=== PATIENT | female | born 1995 | race Caucasian/White ===

== ENCOUNTER → 2016-05-22 | Outpatient (CLI) | payer MEDICAID ==
[~2016-05-22] MED LIST: ACET-654 PO; CIPR500T89 PO; DOCU10CA PO; FLEXERIL PO; FLOM5CAP PO; IBUP80TA PO; PERCOCET PO
== END ==
LOC: M OUTALCOH 08:40
PROVIDERS: ATTEND Psychiatry & Neurology Psychiatry
DX: Z13.9 Encounter for screening, unspecified (principal); F11.20 Opioid dependence, uncomplicated; F12.20 Cannabis dependence, uncomplicated; F13.20 Sedative, hypnotic or anxiolytic dependence, uncomplicated

== ENCOUNTER 2016-05-27 17:32 | Emergency (ER) | payer MEDICAID ==
[2016-05-27 19:52] LABS: BASO % 0.3 % (0.0-1.0); EOS # 0.1 K/mm3 (0.0-0.50); EOS % 1.3 % (0.0-3.0); LARGE UNSTAINED CELL # 0.3 K/mm3 (0.0-0.4); LARGE UNSTAINED CELL % 4.7 % (0.0-4.0); LYMPH # 2.1 K/mm3 (1.5-6.5); LYMPH % 37.8 % (24.0-44.0); MEAN CORPUSCULAR HEMOGLOBIN 30.5 pg (27.0-33.0); MEAN CORPUSCULAR HGB CONC 33.4 g/dl (32.0-36.5); MEAN CORPUSCULAR VOLUME 91.2 fl (80.0-96.0); MONO # 0.3 K/mm3 (0.0-0.8); MONO % 4.7 % (0.0-5.0); NEUTROPHILS # 2.8 K/mm3 (1.8-7.7); NEUTROPHILS % 51.2 % (36.0-66.0); PLATELET COUNT, AUTOMATED 367 k/mm3 (150-450); RED CELL DISTRIBUTION WIDTH 12.3 % (11.5-14.5); WHITE BLOOD COUNT 5.5 K/mm3 (4.0-10.0)
[2016-05-27 20:02] LABS: ANION GAP 8 MEQ/L (8-16); BLOOD UREA NITROGEN 8 MG/DL (7-18); CALCIUM LEVEL 8.6 MG/DL (8.5-10.1); CARBON DIOXIDE LEVEL 30 MEQ/L (21-32); CHLORIDE LEVEL 101 MEQ/L (98-107); CREATININE FOR GFR 0.71 MG/DL (0.55-1.02); GLOMERULAR FILTRATION RATE > 60.0 (>60); GLUCOSE, FASTING 82 MG/DL (70-105); HCG, SERUM QUANTITATIVE < 1.0 MIU/ML; POTASSIUM SERUM 3.1 MEQ/L (3.5-5.1); SODIUM LEVEL 139 MEQ/L (136-145)
--- NOTE | 2016-05-27 21:00 | REPUSA ---
CLINICAL STATEMENT: Vaginal bleeding TECHNIQUE: A sonogram of the pelvis was performed utilizing transabdominal and transvaginal approache s assessing cool-scale appearance and color Doppler flow. COMPARISON: None FINDINGS: Uterus: Anteverted Dextroverted Size: 7.7 x 4.7 x 6.1 cm Appearance: Absence of myomas. Endometrium: 11 mm in thickness (normal up to 3mm in postmenopausal women) No mass or increased vascu larity. Cervix: Normal Right ovary: Present Size: 2.8 x 2.5 x 2 x 3 cm Appearance: Normal Flow: Normal. Left ovary: Present Size: 2.7 x 1.7 x 2.2 cm Appearance: Normal Flow: Normal No free pelvic fluid. IMPRESSION: No sonographic abnormality identified. Thank you for this kind referral of this patient.
--- NOTE | 2016-05-27 21:27 | EDDOCDS ---
Nurse's Notes [facility] Name: Yessica Perez Age: 21 yrs Sex: Female : 1995 Arrival Date: 05/27/2016 Time: 17:32 Bed 7 Private MD: Nikolas Garcia Diagnosis: Abnormal uterine and vaginal bleeding, unspecified;Abdominal and pelvic pain Presentation: 05/27 17:37 Presenting complaint: Patient states: woke up this afternoon from nap covered in blood hs1 from vagina and now in cramping pain that is now constant. Patient also reports nausea na throwing up. Risk factors: The patient reports no loss of conciousness prior to arrival. This patient has not had a hysterectomy. This patient has not begun menopause. Adult Sepsis Screening: The patient does not have new or worsening altered mentation. Patient's respiratory rate is less than 22. Systolic blood pressure is greater than 100. Patient has a qSOFA score of 0- Negative Sepsis Screen. Suicide/Homicide risk assessment- the patient denies having any suicidal and/or homicidal ideations and does not present with any other emotional, behavioral or mental health complaints. 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 Transition of care: patient was not received from another setting of care. 17:37 Acuity: KODAK Level 3 hs1 17:37 Method Of Arrival: Walkin/Carried/Asstd hs1 Triage Assessment: 17:39 General: Appears in no apparent distress, Behavior is cooperative. Pain: Location: hs1 pelvis Pain currently is 10 out of 10 on a pain scale. HIV screening NA for this visit Offered previously. : Reports vaginal bleeding that is heavy flow. DRIVER: 17:40 LMP 03/20/2016, patient states took 2 home tests and they were positive hs1 Historical: - Allergies: no known allergies; - Home Meds: 1. none - PMHx: Substance Abuse; - PSHx: Kidney Stent- Left; Appendectomy; Tonsillectomy; - Social history: Smoking status: Patient uses tobacco products, heavy tobacco smoker. No barriers to communication noted, The patient speaks fluent [place] Of [place], Speaks appropriately for age. - Family history: Not pertinent. - : The pt / caregiver states he / she is not on anticoagulants. Home medication list is obtained from the patient. - Exposure Risk Screening:: None identified. Screenin:28 Screening information is obtained from the patient. Fall risk: No risks identified. cj Assistance ADL's: requires no assistance with activities of daily living. Assistance ADL's: requires no assistance with activities of daily living. Abuse/DV Screen: The patient / caregiver reports he/she is: not in a situation that causes fear, pain or injury. Nutritional screening: No deficits noted. Advance Directives: There is no active DNR order. home support is adequate. Assessment: 18:53 General: pt able to ambulate with steady gait. Reports some dizziness. . Pain: ttb Location: lower abd/pelvis. Neurological: Level of Consciousness is awake, alert. 19:28 General: Appears in no apparent distress, comfortable, Behavior is appropriate for age, cjh cooperative, reports continued bleeding, additional pads provided. Pain: Location: pelvis. Respiratory: Airway is patent Respiratory effort is even, unlabored, Respiratory pattern is regular, symmetrical. Derm: Skin is pink, warm & dry. 20:30 General: cooperative with pelvic exam and ultrasound, awaiting results and dispo. [facility] 21:22 General: Appears in no apparent distress, comfortable, Behavior is crying, patient [facility] crying states "I guess I can't just get , or stay ", declines offer to assist with PFS or clergy, states she has family support and support from rehab counselor. Reviewed discharge instructions, encouraged and answered questions, denies further needs. Vital Signs: 17:33 BP 132 / 59; Pulse 67; Resp 18 S; Temp 96.6(O); Pulse Ox 100% on R/A; Weight 52.16 kg gr2 (R); Height 5 ft. 2 in. (157.48 cm) (R); Pain 8/10; 18:41 BP 151 / 83; Pulse 76; Resp 16; Pulse Ox 100% on R/A; Pain 10/10; ttb 21:22 BP 115 / 80; Pulse 88; Resp 16; Temp 98.6; Pulse Ox 99% ; Pain 6/10; cjh 17:33 Body Mass Index 21.03 (52.16 kg, 157.48 cm) gr2 Vitals: 17:33 Log In Time: May 27, 2016 at 17:33. gr2 ED Course: 17:33 Patient visited by Zhanna Cruz. gr2 17:33 Jepma,Nikolas,DO is Private Physician. gr2 17:33 Patient moved to Waiting gr2 17:35 Patient visited by Zhanna Cruz. gr2 17:35 Patient moved to Pre RCE gr2 17:38 Triage Initiated hs1 18:49 Patient moved to 7 mlb1 18:53 Patient visited by Cony Retana, RN. ttb 18:54 Patient visited by Cony Retana, CAMMY. ttb 19:28 The patient / caregiver is instructed regarding the plan of care and ED course. [facility] 19:28 Inserted saline lock: 20 gauge in right antecubital area and blood collected. The [facility] patient tolerated the procedure well. Labs drawn. (by ED staff). Urine collected. Clean catch specimen. 19:33 Luz Girard MD is Attending Physician. ml 19:33 Patient visited by Luz Girard MD. ml 19:47 Wet Prep Sent. cln 19:47 GC & Chlamydia Amplification Sent. cln 20:15 Patient moved to Ultrasound br3 20:15 Assist provider with pelvic exam: Set up pelvic tray. Performed by Luz dacosta MD Patient tolerated well. 20:41 Patient moved to 7 br3 21:00 Nikolas Garcia DO is Referral Physician. ml 21:15 US PELVIC NON-OB COMPLETE Returned. EDMS 21:22 Discontinued lock intact, bleeding controlled, pressure dressing applied, No h redness/swelling at site. Order Results: Lab Order: CBC with Diff; SPEC'M 05/27/16 19:22 Test: WHITE BLOOD COUNT; Value: 5.5; Range: 4.0-10.0; Units: K/mm3; Status: F Test: RED BLOOD COUNT; Value: 4.52; Range: 4.00-5.40; Units: M/mm3; Status: F Test: HEMOGLOBIN; Value: 13.8; Range: 12.0-16.0; Units: g/dl; Status: F Test: HEMATOCRIT; Value: 41.2; Range: 36.0-47.0; Units: %; Status: F Test: MEAN CORPUSCULAR VOLUME; Value: 91.2; Range: 80.0-96.0; Units: fl; Status: F Test: MEAN CORPUSCULAR HEMOGLOBIN; Value: 30.5; Range: 27.0-33.0; Units: pg; Status: F Test: MEAN CORPUSCULAR HGB CONC; Value: 33.4; Range: 32.0-36.5; Units: g/dl; Status: F Test: RED CELL DISTRIBUTION WIDTH; Value: 12.3; Range: 11.5-14.5; Units: %; Status: F Test: PLATELET COUNT, AUTOMATED; Value: 367; Range: 150-450; Units: k/mm3; Status: F Test: NEUTROPHILS %; Value: 51.2; Range: 36.0-66.0; Units: %; Status: F Test: LYMPH %; Value: 37.8; Range: 24.0-44.0; Units: %; Status: F Test: MONO %; Value: 4.7; Range: 0.0-5.0; Units: %; Status: F Test: EOS %; Value: 1.3; Range: 0.0-3.0; Units: %; Status: F Test: BASO %; Value: 0.3; Range: 0.0-1.0; Units: %; Status: F Test: LARGE UNSTAINED CELL %; Value: 4.7; Range: 0.0-4.0; Abnormal: Above high normal; Units: %; Status: F Test: NEUTROPHILS #; Value: 2.8; Range: 1.8-7.7; Units: K/mm3; Status: F Test: LYMPH #; Value: 2.1; Range: 1.5-6.5; Units: K/mm3; Status: F Test: MONO #; Value: 0.3; Range: 0.0-0.8; Units: K/mm3; Status: F Test: EOS #; Value: 0.1; Range: 0.0-0.50; Units: K/mm3; Status: F Test: BASO #; Value: 0.0; Range: 0.0-0.2; Units: K/mm3; Status: F Test: LARGE UNSTAINED CELL #; Value: 0.3; Range: 0.0-0.4; Units: K/mm3; Status: F Lab Order: MED Profile; SPEC'M 05/27/16 19:22 Test: GLUCOSE, FASTING; Value: 82; Range: 70-105; Units: MG/DL; Status: F Test: BLOOD UREA NITROGEN; Value: 8; Range: 7-18; Units: MG/DL; Status: F Test: CREATININE FOR GFR; Value: 0.71; Range: 0.55-1.02; Units: MG/DL; Status: F Test: GLOMERULAR FILTRATION RATE; Value: > 60.0; Range: >60; Status: F Test: SODIUM LEVEL; Value: 139; Range: 136-145; Units: MEQ/L; Status: F Test: POTASSIUM SERUM; Value: 3.1; Range: 3.5-5.1; Abnormal: Below low normal; Units: MEQ/L; Status: F Test: CHLORIDE LEVEL; Value: 101; Range: 98-107; Units: MEQ/L; Status: F Test: CARBON DIOXIDE LEVEL; Value: 30; Range: 21-32; Units: MEQ/L; Status: F Test: ANION GAP; Value: 8; Range: 8-16; Units: MEQ/L; Status: F Test: CALCIUM LEVEL; Value: 8.6; Range: 8.5-10.1; Units: MG/DL; Status: F Test Note: ; Units are mL/min/1.73 m2 Chronic Kidney Disease Staging per NKF: Stage I & II GFR >=60 Normal to Mildly Decreased Stage III GFR 30-59 Moderately Decreased Stage IV GFR 15-29 Severely Decreased Stage V GFR <15 Very Little GFR Left ESRD GFR <15 on BL[facility] Lab Order: Hcg, Serum Quantitative; SPEC'M 05/27/16 19:22 Test: HCG, SERUM QUANTITATIVE; Value: < 1.0; Units: MIU/ML; Status: F Test Note: ; GESTATIONAL AGE APPROXIMATE HCG RANGE (MIU/ML) 0.2-1 WEEK 5-50 1-2 WEEKS 50-500 2-3 WEEKS 100-5,000 3-4 WEEKS 500-10,000 4-5 WEEKS 1,000-50,000 5-6 WEEKS 10,000-100,000 6-8 WEEKS 15,000-200,000 2-3 MONTHS 10,000-100,000 NON FEMALES LESS THAN 3.0 Patient samples may contain human heterophilic antibodies that could react with immunoassays to give falsely elevated or depressed results. This assay has been designed to minimize interference from heterophilic antibodies. Elevated hCG levels have also been associated with trophoblastic disease and nontrophoblastic neoplasms. The possibility of having these diseases should be considered before a diagnosis of is made. This test is not intended for use as a surrogate marker for aiding in the diagnosis or monitoring the treatment of cancer patients. [employer] [place] methodology. Lab Order: Type & Screen; SPEC'M 05/27/16 19:22 Test: BLOOD TYPE; Value: O POS; Status: F Test: AB SCREEN (INDIRECT ADRIAN)VIS; Value: NEGATIVE; Status: F Lab Order: Wet Prep; SPEC'M 05/27/16 19:46 Test: WET PREP; Value: WET PREP RESULT; Status: F Test: WET PREP; Value: MANY RBC; Status: F Test: WET PREP; Value: MODERATE EPITHELIAL CELLS PRESENT; Status: F Test: WET PREP; Value: MODERATE WBC; Status: F Test: WET PREP; Value: MODERATE SHORT RODS PRESENT; Status: F Test: WET PREP; Value: FEW LONG RODS PRESENT; Status: F Radiology Order: US PELVIC NON-OB COMPLETE Test: US PELVIC NON-OB COMPLETE REASON FOR EXAMINATION: vag bleeding home + hcg; ; CLINICAL STATEMENT: Vaginal bleeding; TECHNIQUE: A sonogram of the pelvis was performed utilizing transabdominal and transvaginal approache; s assessing cool-scale appearance and color Doppler flow.; COMPARISON: None; FINDINGS:; Uterus: Anteverted Dextroverted; Size: 7.7 x 4.7 x 6.1 cm; Appearance: Absence of myomas.; Endometrium: 11 mm in thickness (normal up to 3mm in postmenopausal women) No mass or increased vascu; larity.; Cervix: Normal; Right ovary: Present; Size: 2.8 x 2.5 x 2 x 3 cm; Appearance: Normal; Flow: Normal.; Left ovary: Present; Size: 2.7 x 1.7 x 2.2 cm; Appearance: Normal; Flow: Normal; No free pelvic fluid.; IMPRESSION:; No sonographic abnormality identified.; Thank you for this kind referral of this patient.; ; Outcome: 20:15 Discharge Assessment: Patient awake, alert and oriented x 3. No cognitive and/or [facility] functional deficits noted. Patient verbalized understanding of disposition instructions. patient administered narcotics - no. The following High Risk Discharge criteria are identified: None. Discharged to home ambulatory. Condition: stable. Discharge instructions given to patient, Instructed on discharge instructions, follow up and referral plans. Demonstrated understanding of instructions, Pt was receptive of discharge instructions/ teaching. Ultrasound Study completed. Property :Personal belongings accompany Pt. 21:01 Discharge ordered by Provider. ml 21:25 Patient left the ED. [facility] Signatures: Dispatcher [employer] EDMS Luz Girard MD MD ml Barney, Michael B RN RN mlb1 Zunilda Cruz br3 Ramandeep Silva RN RN hs1 Franchesca MezaRN RN [facility] Cony Retana RN RN ttb Zhanna Cruz gr2 Claire Montejo PCA INDIAN TRADER cln [id number]
--- NOTE | 2016-05-27 21:27 | EDDOCDS ---
Physician Documentation [facility] Name: Yessica Perez Age: 21 yrs Sex: Female : 1995 Arrival Date: 05/27/2016 Time: 17:32 Bed 7 Private MD: Nikolas Garcia Disposition: 05/27/16 21:01 Discharged to Home/Self Care. Impression: Abnormal uterine and vaginal bleeding, unspecified, Abdominal and pelvic pain. - Condition is Stable. - Discharge Instructions: Abdominal Pain, Adult, Abnormal Uterine Bleeding. - Medication Reconciliation, Local Pharmacy Hours form. - Follow up: Nikolas Garcia DO; When: Call to arrange an appointment. - Problem is new. - Symptoms are unchanged. - Notes: follow [facility] with [facility]. Return if worsening symptpoms Historical: - Allergies: no known allergies; - Home Meds: 1. none - PMHx: Substance Abuse; - PSHx: Kidney Stent- Left; Appendectomy; Tonsillectomy; - Social history: Smoking status: Patient uses tobacco products, heavy tobacco smoker. No barriers to communication noted, The patient speaks fluent [place], Speaks appropriately for age. - Family history: Not pertinent. - : The pt / caregiver states he / she is not on anticoagulants. Home medication list is obtained from the patient. - Exposure Risk Screening:: None identified. 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 2 in. (157.48 cm) (R); Pain 8/10; 18:41 BP 151 / 83; Pulse 76; Resp 16; Pulse Ox 100% on R/A; Pain 10/10; ttb 21:22 BP 115 / 80; Pulse 88; Resp 16; Temp 98.6; Pulse Ox 99% ; Pain 6/10; cjh 17:33 Body Mass Index 21.03 (52.16 kg, 157.48 cm) gr2 MDM: 19:41 IV Saline Lock ordered. ml 19:41 Set up pelvic ordered. ml 19:41 CBC with Diff Ordered. EDMS 19:41 MED Profile Ordered. EDMS 19:41 Hcg, Serum Quantitative Ordered. EDMS 19:41 GC & Chlamydia Amplification Ordered. EDMS 19:41 Wet Prep Ordered. EDMS 19:42 Type & Screen Ordered. EDMS 20:31 CBC with Diff Reviewed. ml 20:31 MED Profile Reviewed. ml 20:31 Hcg, Serum Quantitative Reviewed. ml 20:31 Wet Prep Reviewed. ml 20:37 US PELVIC NON-OB COMPLETE Ordered. EDMS 20:37 Transvaginal NON- US Ordered. EDMS 20:38 DUPLEX SCAN LIMITED (DOPPLER) Ordered. EDMS Signatures: Dispatcher [employer] EDMS Luz Girard MD MD Ramandeep Silva RN RN [facility] Franchesca Meza RN RN [facility] The chart was reviewed and I authenticate all verbal orders and agree with the evaluation and treatment provided.Corrections: (The following items were deleted from the chart) 20:37 19:42 1ST TRIMESTER US+US ordered. EDMS EDMS MTDD
--- NOTE | 2016-05-29 22:27 | EDDOCDS ---
Physician Documentation [facility] Name: Yessica Perez Age: 21 yrs Sex: Female : 1995 Arrival Date: 05/27/2016 Time: 17:32 Bed 7 Private MD: Nikolas Garcia Disposition: 05/27/16 21:01 Discharged to Home/Self Care. Impression: Abnormal uterine and vaginal bleeding, unspecified, Abdominal and pelvic pain. - Condition is Stable. - Discharge Instructions: Abdominal Pain, Adult, Abnormal Uterine Bleeding. - Medication Reconciliation, Local Pharmacy Hours form. - Follow up: Nikolas Garcia DO; When: Call to arrange an appointment. - Problem is new. - Symptoms are unchanged. - Notes: [facility] with [facility]. Return if worsening symptpoms Historical: - Allergies: no known allergies; - Home Meds: 1. none - PMHx: Substance Abuse; - PSHx: Kidney Stent- Left; Appendectomy; Tonsillectomy; - Social history: Smoking status: Patient uses tobacco products, heavy tobacco smoker. No barriers to communication noted, The patient speaks fluent [place], Speaks appropriately for age. - Family history: Not pertinent. - : The pt / caregiver states he / she is not on anticoagulants. Home medication list is obtained from the patient. - Exposure Risk Screening:: None identified. 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 2 in. (157.48 cm) (R); Pain 8/10; 18:41 BP 151 / 83; Pulse 76; Resp 16; Pulse Ox 100% on R/A; Pain 10/10; ttb 21:22 BP 115 / 80; Pulse 88; Resp 16; Temp 98.6; Pulse Ox 99% ; Pain 6/10; cjh 17:33 Body Mass Index 21.03 (52.16 kg, 157.48 cm) gr2 MDM: 19:41 IV Saline Lock ordered. ml 19:41 Set up pelvic ordered. ml 19:41 CBC with Diff Ordered. EDMS 19:41 MED Profile Ordered. EDMS 19:41 Hcg, Serum Quantitative Ordered. EDMS 19:41 GC & Chlamydia Amplification Ordered. EDMS 19:41 Wet Prep Ordered. EDMS 19:42 Type & Screen Ordered. EDMS 20:31 CBC with Diff Reviewed. ml 20:31 MED Profile Reviewed. ml 20:31 Hcg, Serum Quantitative Reviewed. ml 20:31 Wet Prep Reviewed. ml 20:37 US PELVIC NON-OB COMPLETE Ordered. EDMS 20:37 Transvaginal NON- US Ordered. EDMS 20:38 DUPLEX SCAN LIMITED (DOPPLER) Ordered. EDMS 05/28 13:26 T-Sheet-- Draft Copy was scanned into [employer] and attached to record. gb Signatures: Dispatcher [employer] [facility] Julio-Luz Dacosta MD MD Olga Prasad, Reg Reg Ramandeep Silva RN RN hs1 Franchesca MezaRN RN cj The chart was reviewed and I authenticate all verbal orders and agree with the evaluation and treatment provided.Corrections: (The following items were deleted from the chart) 05/27 20:37 19:42 1ST TRIMESTER US+US ordered. EDMS EDMS Attachments: 05/28 13:26 T-Sheet-- Draft Copy gb Chart Complete MTDD
--- NOTE | 2016-05-29 22:27 | EDDOCDS ---
Nurse's Notes [facility] Name: Yessica Perez Age: 21 yrs Sex: Female : 1995 Arrival Date: 05/27/2016 Time: 17:32 Bed 7 Private MD: Nikolas Garcia Diagnosis: Abnormal uterine and vaginal bleeding, unspecified;Abdominal and pelvic pain Presentation: 05/27 17:37 Presenting complaint: Patient states: woke up this afternoon from nap covered in blood hs1 from vagina and now in cramping pain that is now constant. Patient also reports nausea na throwing up. Risk factors: The patient reports no loss of conciousness prior to arrival. This patient has not had a hysterectomy. This patient has not begun menopause. Adult Sepsis Screening: The patient does not have new or worsening altered mentation. Patient's respiratory rate is less than 22. Systolic blood pressure is greater than 100. Patient has a qSOFA score of 0- Negative Sepsis Screen. Suicide/Homicide risk assessment- the patient denies having any suicidal and/or homicidal ideations and does not present with any other emotional, behavioral or mental health complaints. Status: Patient is not a medical service technician or dependent. Transition of care: patient was not received from another setting of care. 17:37 Acuity: KODAK Level 3 hs1 17:37 Method Of Arrival: Walkin/Carried/Asstd hs1 Triage Assessment: 17:39 General: Appears in no apparent distress, Behavior is cooperative. Pain: Location: hs1 pelvis Pain currently is 10 out of 10 on a pain scale. HIV screening NA for this visit Offered previously. : Reports vaginal bleeding that is heavy flow. 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 none - PMHx: Substance Abuse; - PSHx: Kidney Stent- Left; Appendectomy; Tonsillectomy; - Social history: Smoking status: Patient uses tobacco products, heavy tobacco smoker. No barriers to communication noted, The patient speaks fluent [place], Speaks appropriately for age. - Family history: Not pertinent. - : The pt / caregiver states he / she is not on anticoagulants. Home medication list is obtained from the patient. - Exposure Risk Screening:: None identified. Screenin:28 Screening information is obtained from the patient. Fall risk: No risks identified. cj Assistance ADL's: requires no assistance with activities of daily living. Assistance ADL's: requires no assistance with activities of daily living. Abuse/DV Screen: The patient / caregiver reports he/she is: not in a situation that causes fear, pain or injury. Nutritional screening: No deficits noted. Advance Directives: There is no active DNR order. home support is adequate. Assessment: 18:53 General: pt able to ambulate with steady gait. Reports some dizziness. . Pain: ttb Location: lower abd/pelvis. Neurological: Level of Consciousness is awake, alert. 19:28 General: Appears in no apparent distress, comfortable, Behavior is appropriate for age, cjh cooperative, reports continued bleeding, additional pads provided. Pain: Location: pelvis. Respiratory: Airway is patent Respiratory effort is even, unlabored, Respiratory pattern is regular, symmetrical. Derm: Skin is pink, warm & dry. 20:30 General: cooperative with pelvic exam and ultrasound, awaiting results and dispo. [facility] 21:22 General: Appears in no apparent distress, comfortable, Behavior is crying, patient [facility] crying states "I guess I can't just get , or stay ", declines offer to assist with PFS or clergy, states she has family support and support from rehab counselor. Reviewed discharge instructions, encouraged and answered questions, denies further needs. Vital Signs: 17:33 BP 132 / 59; Pulse 67; Resp 18 S; Temp 96.6(O); Pulse Ox 100% on R/A; Weight 52.16 kg gr2 (R); Height 5 ft. 2 in. (157.48 cm) (R); Pain 8/10; 18:41 BP 151 / 83; Pulse 76; Resp 16; Pulse Ox 100% on R/A; Pain 10/10; ttb 21:22 BP 115 / 80; Pulse 88; Resp 16; Temp 98.6; Pulse Ox 99% ; Pain 6/10; cjh 17:33 Body Mass Index 21.03 (52.16 kg, 157.48 cm) gr2 Vitals: 17:33 Log In Time: May 27, 2016 at 17:33. gr2 ED Course: 17:33 Patient visited by Zhanna Cruz. gr2 17:33 Jepma,Nikolas,DO is Private Physician. gr2 17:33 Patient moved to Waiting gr2 17:35 Patient visited by Zhanna Cruz. gr2 17:35 Patient moved to Pre RCE gr2 17:38 Triage Initiated hs1 18:49 Patient moved to 7 mlb1 18:53 Patient visited by Cony Retana, RN. ttb 18:54 Patient visited by Cony Retana, RN. ttb 19:28 The patient / caregiver is instructed regarding the plan of care and ED course. [facility] 19:28 Inserted saline lock: 20 gauge in right antecubital area and blood collected. The [facility] patient tolerated the procedure well. Labs drawn. (by ED staff). Urine collected. Clean catch specimen. 19:33 Luz Girard MD is Attending Physician. ml 19:33 Patient visited by Luz Girard MD. ml 19:47 Wet Prep Sent. cln 19:47 GC & Chlamydia Amplification Sent. cln 20:15 Patient moved to Ultrasound br3 20:15 Assist provider with pelvic exam: Set up pelvic tray. Performed by Luz dacosta MD Patient tolerated well. 20:41 Patient moved to 7 br3 21:00 Nikolas Garcia DO is Referral Physician. ml 21:15 US PELVIC NON-OB COMPLETE Returned. EDMS 21:22 Discontinued lock intact, bleeding controlled, pressure dressing applied, No [facility] redness/swelling at site. 05/28 13:26 T-Sheet-- Draft Copy was scanned into [employer] and attached to record. gb Order Results: Lab Order: CBC with Diff; SPEC'M 05/27/16 19:22 Test: WHITE BLOOD COUNT; Value: 5.5; Range: 4.0-10.0; Units: K/mm3; Status: F Test: RED BLOOD COUNT; Value: 4.52; Range: 4.00-5.40; Units: M/mm3; Status: F Test: HEMOGLOBIN; Value: 13.8; Range: 12.0-16.0; Units: g/dl; Status: F Test: HEMATOCRIT; Value: 41.2; Range: 36.0-47.0; Units: %; Status: F Test: MEAN CORPUSCULAR VOLUME; Value: 91.2; Range: 80.0-96.0; Units: fl; Status: F Test: MEAN CORPUSCULAR HEMOGLOBIN; Value: 30.5; Range: 27.0-33.0; Units: pg; Status: F Test: MEAN CORPUSCULAR HGB CONC; Value: 33.4; Range: 32.0-36.5; Units: g/dl; Status: F Test: RED CELL DISTRIBUTION WIDTH; Value: 12.3; Range: 11.5-14.5; Units: %; Status: F Test: PLATELET COUNT, AUTOMATED; Value: 367; Range: 150-450; Units: k/mm3; Status: F Test: NEUTROPHILS %; Value: 51.2; Range: 36.0-66.0; Units: %; Status: F Test: LYMPH %; Value: 37.8; Range: 24.0-44.0; Units: %; Status: F Test: MONO %; Value: 4.7; Range: 0.0-5.0; Units: %; Status: F Test: EOS %; Value: 1.3; Range: 0.0-3.0; Units: %; Status: F Test: BASO %; Value: 0.3; Range: 0.0-1.0; Units: %; Status: F Test: LARGE UNSTAINED CELL %; Value: 4.7; Range: 0.0-4.0; Abnormal: Above high normal; Units: %; Status: F Test: NEUTROPHILS #; Value: 2.8; Range: 1.8-7.7; Units: K/mm3; Status: F Test: LYMPH #; Value: 2.1; Range: 1.5-6.5; Units: K/mm3; Status: F Test: MONO #; Value: 0.3; Range: 0.0-0.8; Units: K/mm3; Status: F Test: EOS #; Value: 0.1; Range: 0.0-0.50; Units: K/mm3; Status: F Test: BASO #; Value: 0.0; Range: 0.0-0.2; Units: K/mm3; Status: F Test: LARGE UNSTAINED CELL #; Value: 0.3; Range: 0.0-0.4; Units: K/mm3; Status: F Lab Order: MED Profile; [facility]' 05/27/16 19:22 Test: GLUCOSE, FASTING; Value: 82; Range: 70-105; Units: MG/DL; Status: F Test: BLOOD UREA NITROGEN; Value: 8; Range: 7-18; Units: MG/DL; Status: F Test: CREATININE FOR GFR; Value: 0.71; Range: 0.55-1.02; Units: MG/DL; Status: F Test: GLOMERULAR FILTRATION RATE; Value: > 60.0; Range: >60; Status: F Test: SODIUM LEVEL; Value: 139; Range: 136-145; Units: MEQ/L; Status: F Test: POTASSIUM SERUM; Value: 3.1; Range: 3.5-5.1; Abnormal: Below low normal; Units: MEQ/L; Status: F Test: CHLORIDE LEVEL; Value: 101; Range: 98-107; Units: MEQ/L; Status: F Test: CARBON DIOXIDE LEVEL; Value: 30; Range: 21-32; Units: MEQ/L; Status: F Test: ANION GAP; Value: 8; Range: 8-16; Units: MEQ/L; Status: F Test: CALCIUM LEVEL; Value: 8.6; Range: 8.5-10.1; Units: MG/DL; Status: F Test Note: ; Units are mL/min/1.73 m2 Chronic Kidney Disease Staging per NKF: Stage I & II GFR >=60 Normal to Mildly Decreased Stage III GFR 30-59 Moderately Decreased Stage IV GFR 15-29 Severely Decreased Stage V GFR <15 Very Little GFR Left ESRD GFR <15 on FITNESS DIRECTOR Lab Order: Hcg, Serum Quantitative; [facility]' 05/27/16 19:22 Test: HCG, SERUM QUANTITATIVE; Value: < 1.0; Units: MIU/ML; Status: F Test Note: ; GESTATIONAL AGE APPROXIMATE HCG RANGE (MIU/ML) 0.2-1 WEEK 5-50 1-2 WEEKS 50-500 2-3 WEEKS 100-5,000 3-4 WEEKS 500-10,000 4-5 WEEKS 1,000-50,000 5-6 WEEKS 10,000-100,000 6-8 WEEKS 15,000-200,000 2-3 MONTHS 10,000-100,000 NON FEMALES LESS THAN 3.0 Patient samples may contain human heterophilic antibodies that could react with immunoassays to give falsely elevated or depressed results. This assay has been designed to minimize interference from heterophilic antibodies. Elevated hCG levels have also been associated with trophoblastic disease and nontrophoblastic neoplasms. The possibility of having these diseases should be considered before a diagnosis of is made. This test is not intended for use as a surrogate marker for aiding in the diagnosis or monitoring the treatment of cancer patients. [employer] [place] methodology. Lab Order: Type & Screen; SPEC'M 05/27/16 19:22 Test: BLOOD TYPE; Value: O POS; Status: F Test: AB SCREEN (INDIRECT ADRIAN)VIS; Value: NEGATIVE; Status: F Lab Order: GC & Chlamydia Amplification; SPEC' 05/27/16 19:46 Test: CHLAMYDIA DNA AMPLIFICATION; Value: NEGATIVE; Range: NEGATIVE; Status: F Test: GC DNA AMPLIFICATION; Value: NEGATIVE; Range: NEGATIVE; Status: F Lab Order: Wet Prep; SPEC' 05/27/16 19:46 Test: WET PREP; Value: WET PREP RESULT; Status: F Test: WET PREP; Value: MANY RBC; Status: F Test: WET PREP; Value: MODERATE EPITHELIAL CELLS PRESENT; Status: F Test: WET PREP; Value: MODERATE WBC; Status: F Test: WET PREP; Value: MODERATE SHORT RODS PRESENT; Status: F Test: WET PREP; Value: FEW LONG RODS PRESENT; Status: F Radiology Order: US PELVIC NON-OB COMPLETE Test: US PELVIC NON-OB COMPLETE REASON FOR EXAMINATION: vag bleeding home + hcg; ; CLINICAL STATEMENT: Vaginal bleeding; TECHNIQUE: A sonogram of the pelvis was performed utilizing transabdominal and transvaginal approache; s assessing cool-scale appearance and color Doppler flow.; COMPARISON: None; FINDINGS:; Uterus: Anteverted Dextroverted; Size: 7.7 x 4.7 x 6.1 cm; Appearance: Absence of myomas.; Endometrium: 11 mm in thickness (normal up to 3mm in postmenopausal women) No mass or increased vascu; larity.; Cervix: Normal; Right ovary: Present; Size: 2.8 x 2.5 x 2 x 3 cm; Appearance: Normal; Flow: Normal.; Left ovary: Present; Size: 2.7 x 1.7 x 2.2 cm; Appearance: Normal; Flow: Normal; No free pelvic fluid.; IMPRESSION:; No sonographic abnormality identified.; Thank you for this kind referral of this patient.; ; Outcome: 05/27 20:15 Discharge Assessment: Patient awake, alert and oriented x 3. No cognitive and/or [facility] functional deficits noted. Patient verbalized understanding of disposition instructions. patient administered narcotics - no. The following High Risk Discharge criteria are identified: None. Discharged to home ambulatory. Condition: stable. Discharge instructions given to patient, Instructed on discharge instructions, follow up and referral plans. Demonstrated understanding of instructions, Pt was receptive of discharge instructions/ teaching. Ultrasound Study completed. Property :Personal belongings accompany Pt. 21:01 Discharge ordered by Provider. ml 21:25 Patient left the ED. [facility] Signatures: Dispatcher [employer] EDMS Luz Girard MD MD ml Olga Prasad, Reg Reg Maycol Murray RN RN mlb1 Zunilda Cruz br3 Ramandeep Silva RN RN hs1 Franchesca MezaRN RN [facility] Cony Retana RN RN ttb Zhanna Cruz gr2 Claire Montejo, JESUS [employer]MOD[employer]ER [employer] cln Chart Complete MTDD
--- NOTE | 2016-05-29 22:27 | EDDOCDS ---
Physician Documentation [facility] Name: Yessica Perez Age: 21 yrs Sex: Female : 1995 Arrival Date: 05/27/2016 Time: 17:32 Bed 7 Private MD: Nikolas Garcia Disposition: 05/27/16 21:01 Discharged to Home/Self Care. Impression: Abnormal uterine and vaginal bleeding, unspecified, Abdominal and pelvic pain. - Condition is Stable. - Discharge Instructions: Abdominal Pain, Adult, Abnormal Uterine Bleeding. - Medication Reconciliation, Local Pharmacy Hours form. - Follow up: Nikolas Garcia DO; When: Call to arrange an appointment. - Problem is new. - Symptoms are unchanged. - Notes: follow up with [facility]. Return if worsening symptpoms Historical: - Allergies: no known allergies; - Home Meds: 1. none - PMHx: Substance Abuse; - PSHx: Kidney Stent- Left; Appendectomy; Tonsillectomy; - Social history: Smoking status: Patient uses tobacco products, heavy tobacco smoker. No barriers to communication noted, The patient speaks fluent [place], Speaks appropriately for age. - Family history: Not pertinent. - : The pt / caregiver states he / she is not on anticoagulants. Home medication list is obtained from the patient. - Exposure Risk Screening:: None identified. [employer] RECONDITIONING: 05/27 17:40 LMP 03/20/2016, patient states took 2 home tests and they were positive hs1 Vital Signs: 17:33 BP 132 / 59; Pulse 67; Resp 18 S; Temp 96.6(O); Pulse Ox 100% on R/A; Weight 52.16 kg / gr2 114.99 lbs (R); Height 5 ft. 2 in. (157.48 cm) (R); Pain 8/10; 18:41 BP 151 / 83; Pulse 76; Resp 16; Pulse Ox 100% on R/A; Pain 10/10; ttb 21:22 BP 115 / 80; Pulse 88; Resp 16; Temp 98.6; Pulse Ox 99% ; Pain 6/10; cjh 17:33 Body Mass Index 21.03 (52.16 kg, 157.48 cm) gr2 MDM: 19:41 IV Saline Lock ordered. ml 19:41 Set up pelvic ordered. ml 19:41 CBC with Diff Ordered. EDMS 19:41 MED Profile Ordered. EDMS 19:41 Hcg, Serum Quantitative Ordered. EDMS 19:41 GC & Chlamydia Amplification Ordered. EDMS 19:41 Wet Prep Ordered. EDMS 19:42 Type & Screen Ordered. EDMS 20:31 CBC with Diff Reviewed. ml 20:31 MED Profile Reviewed. ml 20:31 Hcg, Serum Quantitative Reviewed. ml 20:31 Wet Prep Reviewed. ml 20:37 US PELVIC NON-OB COMPLETE Ordered. EDMS 20:37 Transvaginal NON- US Ordered. EDMS 20:38 DUPLEX SCAN LIMITED (DOPPLER) Ordered. EDMS 05/28 13:26 T-Sheet-- Draft Copy was scanned into [employer] and attached to record. gb Signatures: Dispatcher [employer] [facility] Julio-Luz Dacosta MD MD Olga Prasad, Reg Reg Ramandeep Silva RN RN hs1 Franchesca MezaRN RN cj The chart was reviewed and I authenticate all verbal orders and agree with the evaluation and treatment provided.Corrections: (The following items were deleted from the chart) 05/27 20:37 19:42 1ST TRIMESTER US+US ordered. EDMS EDMS Attachments: 05/28 13:26 T-Sheet-- Draft Copy gb Chart Complete MTDD
== END 2016-05-27 21:25 | disposition home or self-care (01) ==
LOC: M ED 17:32
DX: N93.9 Abnormal uterine and vaginal bleeding, unspecified (principal); R10.2 Pelvic and perineal pain; F17.210 Nicotine dependence, cigarettes, uncomplicated

== ENCOUNTER 2016-08-03 23:04 | Emergency (ER) | payer MEDICAID, OTHER ==
[~2016-08-03] VITALS: Ht 157.5 cm; Wt 49.4 kg
[2016-08-03 23:04] VITALS: BP 143/88
== END 2016-08-04 00:07 | disposition left against medical advice (07) ==
LOC: M ED 23:41
DX: S69.90XA Unspecified injury of unspecified wrist, hand and finger(s), initial encounter (principal); X58.XXXA Exposure to other specified factors, initial encounter; Y92.9 Unspecified place or not applicable; Y99.9 Unspecified external cause status; Y93.9 Activity, unspecified; Z53.21 Procedure and treatment not carried out due to patient leaving prior to being seen by health care provider

== ENCOUNTER → 2016-09-29 | Outpatient (REF) | payer OTHER ==
[2016-09-30 12:01] LABS: MEAN CORPUSCULAR HEMOGLOBIN 31.2 pg (27.0-33.0); MEAN CORPUSCULAR HGB CONC 33.8 g/dl (32.0-36.5); MEAN CORPUSCULAR VOLUME 92.3 fl (80.0-96.0); RED CELL DISTRIBUTION WIDTH 12.3 % (11.5-14.5); WHITE BLOOD COUNT 8.4 K/mm3 (4.0-10.0)
[2016-09-30 12:02] LABS: ALBUMIN 3.2 GM/DL (3.2-5.2); ALBUMIN/GLOBULIN RATIO 0.71 (1.00-1.93); ALKALINE PHOSPHATASE 86 U/L (45-117); ALT/SGPT 27 U/L (12-78); ANION GAP 7 MEQ/L (8-16); AST/SGOT 25 U/L (15-37); BILIRUBIN,TOTAL 0.3 MG/DL (0.2-1.0); BLOOD UREA NITROGEN 8 MG/DL (7-18); CALCIUM LEVEL 9.1 MG/DL (8.5-10.1); CARBON DIOXIDE LEVEL 29 MEQ/L (21-32); CHLORIDE LEVEL 101 MEQ/L (98-107); CREATININE FOR GFR 0.59 MG/DL (0.55-1.02); GLOMERULAR FILTRATION RATE > 60.0 (>60); GLUCOSE, FASTING 83 MG/DL (70-105); POTASSIUM SERUM 4.6 MEQ/L (3.5-5.1); SODIUM LEVEL 137 MEQ/L (136-145); TOTAL PROTEIN 7.7 GM/DL (6.4-8.2)
[2016-09-30 12:28] LABS: EOSINOPHILS 1 % (0-5)
[2016-09-30 13:51] LABS: ERYTHROCYTE SEDIMENTATION RATE 61 mm/hr (0-20)
== END ==
LOC: M SFHCCLAY 15:11
PROVIDERS: ATTEND Family Medicine
DX: R50.9 Fever, unspecified (principal)

== ENCOUNTER 2016-11-06 13:27 | Emergency (ER) | payer OTHER ==
[~2016-11-06] VITALS: Ht 157.5 cm; Wt 53.4 kg
[~2016-11-06 13:27] MED LIST changes: -ACET-654 PO; +ACET1TAB17 PO; +CIPR-249 PO; -CIPR500T89 PO
--- NOTE | 2016-11-06 15:13 | REP ---
Urinary tract sonogram: History: Left flank pain. Comparison: No comparison sonography. Comparison CT study October 01, 2014. Findings: Scanning at the level of the urinary bladder shows no abnormality. Renal cortical echogenicity pattern is normal bilaterally and contours are smooth. There is no evidence of hydronephrosis, cyst, mass, or calculus in either kidney. The right kidney measures 11.6 x 5.4 x 4.5 cm. Left renal dimensions are 11.9 x 4.9 x 7.0 cm. Impression: Normal urinary tract sonography. Signed by Ayaan Mendoza MD 11/06/2016 03:05 P
[2016-11-06 15:23] LABS: CONTROL LINE UCG INT CTR LINE PRESENT
[2016-11-06 15:57] LABS: BASO % 0.7 % (0.0-1.0); EOS # 0.9 K/mm3 (0.0-0.50); EOS % 11.2 % (0.0-3.0); LARGE UNSTAINED CELL # 0.3 K/mm3 (0.0-0.4); LARGE UNSTAINED CELL % 4.1 % (0.0-4.0); LYMPH # 2.6 K/mm3 (1.5-6.5); LYMPH % 30.3 % (24.0-44.0); MEAN CORPUSCULAR HEMOGLOBIN 31.9 pg (27.0-33.0); MEAN CORPUSCULAR HGB CONC 35.5 g/dl (32.0-36.5); MEAN CORPUSCULAR VOLUME 89.9 fl (80.0-96.0); MONO # 0.5 K/mm3 (0.0-0.8); NEUTROPHILS # 3.6 K/mm3 (1.8-7.7); NEUTROPHILS % 46.7 % (36.0-66.0); PLATELET COUNT, AUTOMATED 357 k/mm3 (150-450); WHITE BLOOD COUNT 7.7 K/mm3 (4.0-10.0)
[2016-11-06 16:02] LABS: ANION GAP 5 MEQ/L (8-16); BLOOD UREA NITROGEN 12 MG/DL (7-18); CALCIUM LEVEL 9.3 MG/DL (8.5-10.1); CARBON DIOXIDE LEVEL 30 MEQ/L (21-32); CHLORIDE LEVEL 101 MEQ/L (98-107); CREATININE FOR GFR 0.59 MG/DL (0.55-1.02); GLOMERULAR FILTRATION RATE > 60.0 (>60); GLUCOSE, FASTING 87 MG/DL (70-105); SODIUM LEVEL 136 MEQ/L (136-145)
[2016-11-06] MEDS ORDERED: PYRI1TAB5 PO (16:10)
[2016-11-06] MEDS ORDERED: CIPR-249 PO (16:10)
[2016-11-06 16:22] VITALS: BP 106/61
== END 2016-11-06 16:23 | disposition home or self-care (01) ==
LOC: M ED 13:27
DX: N39.0 Urinary tract infection, site not specified (principal); G43.909 Migraine, unspecified, not intractable, without status migrainosus; Z96.0 Presence of urogenital implants; Z91.89 Other specified personal risk factors, not elsewhere classified

== ENCOUNTER → 2017-07-06 | Outpatient (REF) | payer OTHER ==
[2017-07-06 18:22] LABS: CHLAMYDIA DNA AMPLIFICATION NEGATIVE (NEGATIVE); GC DNA AMPLIFICATION NEGATIVE (NEGATIVE)
== END ==
LOC: M SFHCCAPE 10:56
DX: Z01.419 Encounter for gynecological examination (general) (routine) without abnormal findings (principal); Z11.3 Encounter for screening for infections with a predominantly sexual mode of transmission (principal); R21 Rash and other nonspecific skin eruption
CPT/HCPCS: 87186

== ENCOUNTER 2017-12-21 00:19 | Emergency (ER) | payer OTHER ==
[2017-12-21] MEDS: NS 1,000 ML IV (01:56)
[2017-12-21] MEDS: AMPICILLIN SOD/SULBACTAM SOD 3 GM in D5W MINI-BAG PLUS 100 ML IV (02:00)
[2017-12-21 02:03] LABS: ANION GAP 10 MEQ/L (8-16); BLOOD UREA NITROGEN 14 MG/DL (7-18); CALCIUM LEVEL 9.3 MG/DL (8.5-10.1); CARBON DIOXIDE LEVEL 33 MEQ/L (21-32); CHLORIDE LEVEL 94 MEQ/L (98-107); CPK CREATINE PHOSPHOKINASE 39 U/L (26-192); CREATININE FOR GFR 0.87 MG/DL (0.55-1.30); GLOMERULAR FILTRATION RATE > 60.0 (>60); GLUCOSE, FASTING 180 MG/DL (70-100); POTASSIUM SERUM 2.6 MEQ/L (3.5-5.1); SODIUM LEVEL 137 MEQ/L (136-145)
[2017-12-21 02:07] LABS: BASO % 0.6 % (0.0-1.0); EOS # 0.3 10^3/uL (0.0-0.50); HEMATOCRIT 40.3 % (36.0-47.0); HEMOGLOBIN 13.7 g/dl (12.0-15.5); IMMATURE GRANULOCYTE % 0.2 % (0-3.0); LYMPH # 2.3 10^3/uL (1.5-6.5); LYMPH % 44.4 % (24.0-44.0); MEAN CORPUSCULAR HEMOGLOBIN 29.7 pg (27.0-33.0); MEAN CORPUSCULAR VOLUME 87.2 fl (80.0-96.0); MONO # 0.3 10^3/uL (0.0-0.8); MONO % 6.1 % (0.0-5.0); NEUTROPHILS # 2.3 10^3/uL (1.8-7.7); NEUTROPHILS % 43.7 % (36.0-66.0); PLATELET COUNT, AUTOMATED 287 10^3/uL (150-450); RED BLOOD COUNT 4.62 10^6/uL (4.00-5.40); RED CELL DISTRIBUTION WIDTH 11.9 % (11.5-14.5); WHITE BLOOD COUNT 5.3 10^3/uL (4.0-10.0)
[2017-12-21] MEDS: POTASSIUM CHLORIDE 10 MEQ SR TABLET PO (03:05)
[2017-12-21] MEDS: MORPHINE 2 MG/ML 1ML SYRINGE (J2270) IV (03:56)
== END 2017-12-21 04:51 | disposition home or self-care (01) ==
LOC: M ED 00:19
DX: E87.6 Hypokalemia (principal); F19.10 Other psychoactive substance abuse, uncomplicated; F17.210 Nicotine dependence, cigarettes, uncomplicated
CPT/HCPCS: J2270

== ENCOUNTER 2017-12-31 10:03 | Emergency (ER) | payer OTHER ==
[2017-12-31 10:48] LABS: BASO % 0.6 % (0.0-1.0); EOS # 0.3 10^3/uL (0.0-0.50); EOS % 5.6 % (0.0-3.0); HEMATOCRIT 39.5 % (36.0-47.0); IMMATURE GRANULOCYTE % 0.2 % (0-3.0); LYMPH # 2.3 10^3/uL (1.5-6.5); LYMPH % 45.6 % (24.0-44.0); MEAN CORPUSCULAR HEMOGLOBIN 29.1 pg (27.0-33.0); MEAN CORPUSCULAR HGB CONC 32.9 g/dl (32.0-36.5); MEAN CORPUSCULAR VOLUME 88.6 fl (80.0-96.0); MONO # 0.4 10^3/uL (0.0-0.8); MONO % 7.5 % (0.0-5.0); NEUTROPHILS % 40.5 % (36.0-66.0); PLATELET COUNT, AUTOMATED 336 10^3/uL (150-450); RED BLOOD COUNT 4.46 10^6/uL (4.00-5.40); RED CELL DISTRIBUTION WIDTH 12.4 % (11.5-14.5)
[2017-12-31 10:57] LABS: INR 0.98; PROTHROMBIN TIME 13.1 SECONDS (12.1-14.4)
[2017-12-31 10:58] LABS: PARTIAL THROMBOPLASTIN TIME 30.9 SECONDS (25.4-37.6)
[2017-12-31 11:28] LABS: ALBUMIN 3.6 GM/DL (3.2-5.2); ALBUMIN/GLOBULIN RATIO 0.92 (1.00-1.93); ALKALINE PHOSPHATASE 68 U/L (45-117); ALT/SGPT 56 U/L (12-78); AMYLASE 63 U/L (25-115); ANION GAP 9 MEQ/L (8-16); AST/SGOT 37 U/L (7-37); BILIRUBIN,DIRECT < 0.1 MG/DL (0.0-0.2); BILIRUBIN,TOTAL 0.4 MG/DL (0.2-1.0); BLOOD UREA NITROGEN 9 MG/DL (7-18); CALCIUM LEVEL 9.4 MG/DL (8.5-10.1); CARBON DIOXIDE LEVEL 28 MEQ/L (21-32); CHLORIDE LEVEL 104 MEQ/L (98-107); CK-MB VALUE MASS < 1.0 NG/ML (<3.6); CPK CREATINE PHOSPHOKINASE 72 U/L (26-192); CREATININE FOR GFR 0.53 MG/DL (0.55-1.30); FREE T4 1.13 NG/DL (0.76-1.46); GLOMERULAR FILTRATION RATE > 60.0 (>60); GLUCOSE, FASTING 104 MG/DL (70-100); LIPASE 152 U/L (73-393); MB/CK RELATIVE INDEX 1.39 (< OR =4); NT-PRO BNP 41 PG/ML (<125); POTASSIUM SERUM 4.1 MEQ/L (3.5-5.1); SODIUM LEVEL 141 MEQ/L (136-145); TOTAL PROTEIN 7.5 GM/DL (6.4-8.2); TROPONIN I < 0.02 NG/ML (< 0.10)
[2017-12-31 13:14] LABS: AMORPHOUS SEDIMENT RFX LARGE (NEGATIVE); KETONE, URINE AUTO RFX NEGATIVE (NEGATIVE); LEUKOCYTE ESTERASE UR AUTO RFX NEGATIVE (NEGATIVE); MUCUS, URINE RFX SMALL (NEGATIVE); NITRITE, URINE AUTO RFX NEGATIVE (NEGATIVE); RBC, URINE AUTO RFX 2 /HPF (0-3); SPECIFIC GRAVITY UR AUTO RFX 1.021 (1.002-1.035); SQUAM EPITHELIAL CELL UR AURFX 3 /HPF (0-6); WBC, URINE AUTO RFX 0 /HPF (0-3)
== END 2017-12-31 13:01 | disposition left against medical advice (07) ==
LOC: M ED 10:03
DX: R07.9 Chest pain, unspecified (principal); F19.10 Other psychoactive substance abuse, uncomplicated; R51 Headache; F50.2 Bulimia nervosa; M54.9 Dorsalgia, unspecified; F99 Mental disorder, not otherwise specified; G43.909 Migraine, unspecified, not intractable, without status migrainosus; Z87.448 Personal history of other diseases of urinary system; Z87.19 Personal history of other diseases of the digestive system; F17.200 Nicotine dependence, unspecified, uncomplicated; Z91.048 Other nonmedicinal substance allergy status; Z79.899 Other long term (current) drug therapy
CPT/HCPCS: 70450

== ENCOUNTER 2020-11-27 20:44 | Emergency (ER) | payer OTHER ==
[~2020-11-27] VITALS: Ht 157.5 cm; Wt 63.2 kg
[~2020-11-27 20:44] MED LIST changes: -ACET1TAB17 PO; +ACET1TAB55 PO; +BUPR8SUB PO; +FLOM0.4C39 PO; -FLOM5CAP PO; +PYRI1TAB5 PO
[2020-11-27 20:46] VITALS: BP 98/57
[2020-11-27] MEDS ORDERED: IBUP80TA PO (20:52)
[2020-11-27] MEDS ORDERED: MIRT-62 PO (20:52)
== END 2020-11-27 22:02 | disposition left against medical advice (07) ==
LOC: M ED 21:49
DX: Z53.21 Procedure and treatment not carried out due to patient leaving prior to being seen by health care provider (principal)

== ENCOUNTER 2021-01-30 14:07 | Emergency (ER) | payer OTHER ==
[~2021-01-30] VITALS: Ht 160 cm; Wt 61.4 kg
[~2021-01-30 14:07] MED LIST changes: +MIRT-62 PO
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
[2021-01-30 16:15] LABS: ALBUMIN 3.3 GM/DL (3.2-5.2); ALT/SGPT 62 U/L (12-78); BILIRUBIN,TOTAL 0.3 MG/DL (0.2-1.0); BLOOD UREA NITROGEN 11 MG/DL (7-18); CALCIUM LEVEL 8.9 MG/DL (8.5-10.1); CARBON DIOXIDE LEVEL 28 MEQ/L (21-32); CHLORIDE LEVEL 105 MEQ/L (98-107); CK-MB VALUE MASS 1.4 NG/ML (<3.6); CPK CREATINE PHOSPHOKINASE 86 U/L (26-192); CREATININE FOR GFR 0.91 MG/DL (0.55-1.30); GLOMERULAR FILTRATION RATE > 60.0 (>60); GLUCOSE, FASTING 107 MG/DL (70-100); HCG, SERUM QUANTITATIVE < 1.0 MIU/ML; MB/CK RELATIVE INDEX 1.63 (< OR =4); POTASSIUM SERUM 4.2 MEQ/L (3.5-5.1); SODIUM LEVEL 138 MEQ/L (136-145); TROPONIN I < 0.02 NG/ML (< 0.10)
[2021-01-30 16:28] LABS: APPEARANCE, URINE CLEAR (CLEAR); BACTERIA, URINE AUTO NEGATIVE (NEGATIVE); BILIRUBIN, URINE AUTO NEGATIVE (NEGATIVE); BLOOD, URINE BLOOD NEGATIVE (NEGATIVE); COLOR, URINE YELLOW (YELLOW); GLUCOSE, URINE (UA) AUTO NEGATIVE (NEGATIVE); KETONE, URINE AUTO NEGATIVE (NEGATIVE); LEUKOCYTE ESTERASE, URINE AUTO TRACE (NEGATIVE); NITRITE, URINE AUTO NEGATIVE (NEGATIVE); PROTEIN, URINE AUTO NEGATIVE (NEGATIVE); RBC, URINE AUTO 0 /HPF (0-3); SPECIFIC GRAVITY URINE AUTO 1.016 (1.002-1.035); SQUAMOUS EPITHELIAL CELL UR AU 1 /HPF (0-6); UROBILINOGEN, URINE AUTO 0.2 mg/dL (0.0-2.0); WBC, URINE AUTO 0 /HPF (0-3)
--- NOTE | 2021-01-30 16:37 | REP ---
INDICATION: chest pain. COMPARISON: None. TECHNIQUE: Portable FINDINGS: The technique utilized in obtaining the radiograph has magnified the cardiac silhouette and accentuated the interstitial markings. The superior mediastinal structures are midline. The cardiac silhouette is unremarkable in size, shape, and position. The diaphragmatic surfaces of the lungs are regular, and the costophrenic angles are clear. The pulmonary mack are clear. The imaged osseous structures are intact. IMPRESSION: There is no acute cardiopulmonary disease. <Electronically signed by Dane Carney > 01/30/21 [id number]
[2021-01-30 17:09] LABS: AMPHETAMINES LEVEL URINE NEGATIVE (NEGATIVE); BARBITURATES URINE NEGATIVE (NEGATIVE); BENZODIAZEPINES URINE NEGATIVE (NEGATIVE); CANNABINOIDS URINE POSITIVE (NEGATIVE); COCAINE METABOLITE URINE NEGATIVE (NEGATIVE); METHADONE URINE POSITIVE (NEGATIVE); OPIATES URINE NEGATIVE (NEGATIVE); PHENCYCLIDINE URINE NEGATIVE (NEGATIVE)
[2021-01-30] MEDS ORDERED: METH-1178 PO (17:36)
[2021-01-30] MEDS ORDERED: Holter Monitor (17:56)
[2021-01-30 18:20] VITALS: BP 122/67
[2021-01-30 20:42] LABS: THYROID STIMULATING HORMONE 0.766 uIU/ML (0.358-3.740)
--- NOTE | 2021-01-31 08:18 | ECGEPIP ---
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
== END 2021-01-30 18:24 | disposition home or self-care (01) ==
LOC: M ED 14:07
DX: R07.89 Other chest pain (principal); R00.2 Palpitations; F41.9 Anxiety disorder, unspecified; R51.9 Headache, unspecified; K59.00 Constipation, unspecified; M54.9 Dorsalgia, unspecified; F19.10 Other psychoactive substance abuse, uncomplicated

== ENCOUNTER → 2021-02-05 | Outpatient (CLI) | payer OTHER ==
[~2021-02-05] MED LIST changes: +Holter Monitor; +METH-1178 PO
--- NOTE | 2021-02-07 09:44 | HOLTMON ---
[facility] Test Date: 2021-02-05 Pat Name: SANCHEZ MENDOZA Department: Room: - Gender: Female Fugitive Investigator: : 1995 Requested By: ZACH Griffith Order Number: [id number] Reading MD: Audie Sanchez Interpretive Statements NO FAMILY HISTORY OF HEART DISEASE Heart rate variability was normal. There were occasional PVC's including some bigeminy and one PAC but no significant runs. No significant ST events or pauses. No atrial fibrillation was seen. No arrhtythmia seen during the diary-reported episodes of palpitaitons. Unremarkable Holter monitor. Electronically Signed on 02-07-2021 9:43:46 EDT by Audie Sanchez
== END ==
LOC: M EKG 10:47
PROVIDERS: ATTEND Internal Medicine
DX: R00.2 Palpitations (principal)

== ENCOUNTER 2021-02-18 16:50 | Emergency (ER) | payer OTHER ==
[~2021-02-18] VITALS: Ht 160 cm; Wt 61.4 kg
[2021-02-18 16:50] VITALS: BP 123/85
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
== END 2021-02-18 18:20 | disposition left against medical advice (07) ==
LOC: M ED 16:50
DX: Z53.21 Procedure and treatment not carried out due to patient leaving prior to being seen by health care provider (principal)

== ENCOUNTER → 2021-03-05 | Outpatient (CLI) | payer OTHER ==
[2021-03-05 15:32] LABS: HEMATOCRIT 36.5 % (36.0-47.0); MEAN CORPUSCULAR HEMOGLOBIN 31.2 pg (27.0-33.0); MEAN CORPUSCULAR HGB CONC 32.9 g/dl (32.0-36.5); MEAN CORPUSCULAR VOLUME 94.8 fl (80.0-96.0); PLATELET COUNT, AUTOMATED 310 10^3/uL (150-450); RED BLOOD COUNT 3.85 10^6/uL (4.00-5.40); WHITE BLOOD COUNT 4.9 10^3/uL (4.0-10.0)
[2021-03-05 15:54] LABS: ALBUMIN 3.6 GM/DL (3.2-5.2); ALT/SGPT 68 U/L (12-78); BILIRUBIN,TOTAL 0.2 MG/DL (0.2-1.0); BLOOD UREA NITROGEN 10 MG/DL (7-18); CALCIUM LEVEL 8.7 MG/DL (8.5-10.1); CARBON DIOXIDE LEVEL 28 MEQ/L (21-32); CHLORIDE LEVEL 106 MEQ/L (98-107); CREATININE FOR GFR 0.86 MG/DL (0.55-1.30); GLOMERULAR FILTRATION RATE > 60.0 (>60); GLUCOSE, FASTING 98 MG/DL (70-100); HCG, SERUM QUANTITATIVE < 1.0 MIU/ML; POTASSIUM SERUM 3.9 MEQ/L (3.5-5.1); SODIUM LEVEL 138 MEQ/L (136-145); TOTAL PROTEIN 7.4 GM/DL (6.4-8.2)
[2021-03-05 16:11] LABS: HEPATITIS B SURFACE ANTIGEN NEGATIVE (NEGATIVE)
[2021-03-05 16:40] LABS: HIV 1&2 SCREEN CENTAUR NEGATIVE (NEGATIVE)
[2021-03-05 16:43] LABS: GC DNA AMPLIFICATION NEGATIVE (NEGATIVE)
[2021-03-05 17:11] LABS: HEPATITIS C VIRUS ABY INDEX > 11.0 INDEX (<0.8)
--- NOTE | 2021-03-06 08:30 | ECGEPIP ---
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
== END ==
LOC: M EKG 14:14
PROVIDERS: ATTEND Family Medicine
DX: F11.20 Opioid dependence, uncomplicated (principal)

== ENCOUNTER → 2021-03-31 | Outpatient (REF) | payer OTHER | LOC: M SFHCPLAZ 11:08 | PROVIDERS: ATTEND Family Medicine | DX: Z53.9 Procedure and treatment not carried out, unspecified reason (principal); B18.2 Chronic viral hepatitis C ==

== ENCOUNTER → 2021-12-11 | Outpatient (CLI) | payer OTHER, MEDICAID | LOC: M PLALAB 13:50 | PROVIDERS: ATTEND Obstetrics & Gynecology | DX: D64.9 Anemia, unspecified (principal) ==

== ENCOUNTER → 2022-01-05 | Outpatient (CLI) | payer OTHER ==
[2022-01-05 13:51] LABS: BASO % 0.4 % (0.0-1.0); EOS # 0.1 10^3/uL (0.0-0.5); HEMATOCRIT 33.4 % (36.0-47.0); HEMOGLOBIN 11.1 g/dl (12.0-15.5); LYMPH # 1.2 10^3/uL (1.5-5.0); LYMPH % 23.4 % (24.0-44.0); MEAN CORPUSCULAR HEMOGLOBIN 31.3 pg (27.0-33.0); MEAN CORPUSCULAR HGB CONC 33.2 g/dl (32.0-36.5); MEAN CORPUSCULAR VOLUME 94.1 fl (80.0-96.0); MONO # 0.5 10^3/uL (0.0-0.8); MONO % 8.6 % (2.0-8.0); NEUTROPHILS # 3.5 10^3/uL (1.5-8.5); NEUTROPHILS % 66.2 % (36.0-66.0); PLATELET COUNT, AUTOMATED 302 10^3/uL (150-450); RED BLOOD COUNT 3.55 10^6/uL (4.00-5.40); WHITE BLOOD COUNT 5.2 10^3/uL (4.0-10.0)
[2022-01-05 14:27] LABS: ALBUMIN 2.9 GM/DL (3.2-5.2); ALT/SGPT 25 U/L (12-78); BILIRUBIN,TOTAL 0.1 MG/DL (0.2-1.0); BLOOD UREA NITROGEN 9 MG/DL (7-18); CALCIUM LEVEL 8.5 MG/DL (8.5-10.1); CARBON DIOXIDE LEVEL 26 MEQ/L (21-32); CHLORIDE LEVEL 104 MEQ/L (98-107); CREATININE FOR GFR 0.71 MG/DL (0.55-1.30); GLOMERULAR FILTRATION RATE > 60.0 (>60); GLUCOSE, FASTING 94 MG/DL (70-100); POTASSIUM SERUM 3.5 MEQ/L (3.5-5.1); SODIUM LEVEL 136 MEQ/L (136-145); TOTAL PROTEIN 6.8 GM/DL (6.4-8.2)
[2022-01-05 16:05] LABS: HIV 1&2 SCREEN CENTAUR NEGATIVE (NEGATIVE)
[2022-01-05 16:34] LABS: GC DNA AMPLIFICATION NEGATIVE (NEGATIVE)
[2022-01-05 16:36] LABS: HEPATITIS C VIRUS ABY INDEX > 11.0 INDEX (<0.8)
== END ==
LOC: M LAB 12:49
PROVIDERS: ATTEND Obstetrics & Gynecology
DX: O98.411 Viral hepatitis complicating pregnancy, first trimester (principal); Z3A.00 Weeks of gestation of pregnancy not specified

== ENCOUNTER → 2022-01-05 | Outpatient (CLI) | payer MEDICAID, OTHER | LOC: M WHC 14:12 | PROVIDERS: ATTEND Obstetrics & Gynecology | DX: O98.412 Viral hepatitis complicating pregnancy, second trimester (principal); Z3A.18 18 weeks gestation of pregnancy ==

== ENCOUNTER → 2022-01-14 | Outpatient (CLI) | payer OTHER | LOC: M WHC 10:05 | PROVIDERS: ATTEND Obstetrics & Gynecology | DX: O36.5990 Maternal care for other known or suspected poor fetal growth, unspecified trimester, not applicable or unspecified (principal); Z3A.19 19 weeks gestation of pregnancy ==

== ENCOUNTER → 2022-02-11 | Outpatient (CLI) | payer OTHER | LOC: M WHC 14:02 | PROVIDERS: ATTEND Obstetrics & Gynecology | DX: Z34.92 Encounter for supervision of normal pregnancy, unspecified, second trimester (principal); Z3A.24 24 weeks gestation of pregnancy ==

== ENCOUNTER → 2022-02-20 | Outpatient (CLI) | payer OTHER ==
[2022-02-20 17:05] LABS: GC DNA AMPLIFICATION NEGATIVE (NEGATIVE)
== END ==
LOC: M LAB 12:23
PROVIDERS: ATTEND Advanced Practice Midwife
DX: O09.92 Supervision of high risk pregnancy, unspecified, second trimester (principal); Z3A.00 Weeks of gestation of pregnancy not specified

== ENCOUNTER → 2022-02-20 | Outpatient (CLI) | payer OTHER | LOC: M RAD 12:16 | PROVIDERS: ATTEND Advanced Practice Midwife | DX: O36.5920 Maternal care for other known or suspected poor fetal growth, second trimester, not applicable or unspecified (principal) ==

== ENCOUNTER → 2022-02-23 | Outpatient (CLI) | payer OTHER ==
[2022-02-23 12:46] LABS: HEMATOCRIT 34.7 % (36.0-47.0); HEMOGLOBIN 11.5 g/dl (12.0-15.5); MEAN CORPUSCULAR HEMOGLOBIN 33.1 pg (27.0-33.0); MEAN CORPUSCULAR HGB CONC 33.1 g/dl (32.0-36.5); PLATELET COUNT, AUTOMATED 324 10^3/uL (150-450); RED BLOOD COUNT 3.47 10^6/uL (4.00-5.40); WHITE BLOOD COUNT 5.4 10^3/uL (4.0-10.0)
[2022-02-23 13:52] LABS: ALBUMIN 2.6 GM/DL (3.2-5.2); ALT/SGPT 26 U/L (12-78); BILIRUBIN,TOTAL 0.2 MG/DL (0.2-1.0); BLOOD UREA NITROGEN 11 MG/DL (7-18); CALCIUM LEVEL 8.6 MG/DL (8.5-10.1); CARBON DIOXIDE LEVEL 27 MEQ/L (21-32); CHLORIDE LEVEL 105 MEQ/L (98-107); CREATININE FOR GFR 0.66 MG/DL (0.55-1.30); GLOMERULAR FILTRATION RATE > 60.0 (>60); GLUCOSE CHALLENGE TEST 1 HOUR 103 MG/DL (LESS THAN 140); GLUCOSE, FASTING 103 MG/DL (70-100); POTASSIUM SERUM 3.5 MEQ/L (3.5-5.1); SODIUM LEVEL 138 MEQ/L (136-145); TOTAL PROTEIN 6.3 GM/DL (6.4-8.2)
== END ==
LOC: M LAB 10:20
PROVIDERS: ATTEND Advanced Practice Midwife
DX: O36.5920 Maternal care for other known or suspected poor fetal growth, second trimester, not applicable or unspecified (principal)

== ENCOUNTER → 2022-03-10 | Outpatient (CLI) | payer OTHER | LOC: M WHC 09:32 | PROVIDERS: ATTEND Advanced Practice Midwife | DX: O36.5920 Maternal care for other known or suspected poor fetal growth, second trimester, not applicable or unspecified (principal); Z3A.27 27 weeks gestation of pregnancy ==

== ENCOUNTER → 2022-03-16 | Outpatient (CLI) | payer OTHER | LOC: M WHC 09:44 | PROVIDERS: ATTEND Obstetrics & Gynecology | DX: O36.5920 Maternal care for other known or suspected poor fetal growth, second trimester, not applicable or unspecified (principal); Z3A.29 29 weeks gestation of pregnancy ==

== ENCOUNTER → 2022-03-23 | Outpatient (CLI) | payer OTHER | LOC: M WHC 12:46 | PROVIDERS: ATTEND Obstetrics & Gynecology | DX: O36.5990 Maternal care for other known or suspected poor fetal growth, unspecified trimester, not applicable or unspecified (principal); Z3A.30 30 weeks gestation of pregnancy ==

== ENCOUNTER → 2022-03-30 | Outpatient (REF) | payer OTHER, MEDICAID ==
[2022-03-30 21:30] LABS: RSV AMPLIFICATION NEGATIVE (NEGATIVE)
== END ==
LOC: M SFHCPLAZ 16:45 → M LAB REF 16:45
PROVIDERS: ATTEND Internal Medicine Infectious Disease
DX: R68.89 Other general symptoms and signs (principal)

== ENCOUNTER → 2022-03-30 | Outpatient (CLI) | payer OTHER | LOC: M WHC 07:34 | PROVIDERS: ATTEND Obstetrics & Gynecology | DX: O36.5930 Maternal care for other known or suspected poor fetal growth, third trimester, not applicable or unspecified (principal); Z3A.31 31 weeks gestation of pregnancy ==

== ENCOUNTER → 2022-04-06 | Outpatient (CLI) | payer OTHER | LOC: M WHC 12:29 | PROVIDERS: ATTEND Obstetrics & Gynecology | DX: O36.5920 Maternal care for other known or suspected poor fetal growth, second trimester, not applicable or unspecified (principal); Z3A.32 32 weeks gestation of pregnancy ==

== ENCOUNTER → 2022-04-15 | Outpatient (CLI) | payer OTHER | LOC: M WHC 12:54 | PROVIDERS: ATTEND Obstetrics & Gynecology | DX: O36.5930 Maternal care for other known or suspected poor fetal growth, third trimester, not applicable or unspecified (principal) ==

== ENCOUNTER → 2022-04-21 | Outpatient (CLI) | payer OTHER | LOC: M WHC 11:53 | PROVIDERS: ATTEND Obstetrics & Gynecology | DX: O36.5930 Maternal care for other known or suspected poor fetal growth, third trimester, not applicable or unspecified (principal) ==

== ENCOUNTER 2022-04-28 13:46 | Outpatient (CLI) | payer OTHER ==
[~2022-04-28] VITALS: Ht 157.5 cm; Wt 73.2 kg
[~2022-04-28 13:46] MED LIST changes: -BENA25CA4 PO; -PRENTAB9 PO; -TUMS500C PO; -UNIS25TA3 PO
[2022-04-28] MEDS ORDERED: TUMS500C PO (14:15)
[2022-04-28] MEDS ORDERED: PRENTAB9 PO (14:15)
[2022-04-28] MEDS ORDERED: BENA25CA4 PO (14:15)
[2022-04-28 14:20] VITALS: BP 121/68
[2022-04-28] MEDS ORDERED: HOME MED LIST COMPLETE! XX SCH (14:20)
[2022-04-28] MEDS ORDERED: BETAMETHASONE SOLUSPAN 6MG/ML 5ML VIAL IM STA (17:33)
== END 2022-04-28 17:50 | disposition home or self-care (01) ==
LOC: M LDO 13:46
PROVIDERS: ATTEND Obstetrics & Gynecology
DX: O36.5939 Maternal care for other known or suspected poor fetal growth, third trimester, other fetus (principal); O98.413 Viral hepatitis complicating pregnancy, third trimester; B18.2 Chronic viral hepatitis C; O99.323 Drug use complicating pregnancy, third trimester; F11.20 Opioid dependence, uncomplicated; Z3A.35 35 weeks gestation of pregnancy

== ENCOUNTER → 2022-04-28 | Outpatient (CLI) | payer OTHER ==
[~2022-04-28] MED LIST changes: +BENA25CA4 PO; +PRENTAB9 PO; +TUMS500C PO; +UNIS25TA3 PO
== END ==
LOC: M WHC 11:53
PROVIDERS: ATTEND Obstetrics & Gynecology
DX: O36.5930 Maternal care for other known or suspected poor fetal growth, third trimester, not applicable or unspecified (principal); Z3A.35 35 weeks gestation of pregnancy

== ENCOUNTER 2022-04-29 17:34 | Outpatient (CLI) | payer OTHER ==
[~2022-04-29] VITALS: Ht 157.5 cm; Wt 73.3 kg
[~2022-04-29 17:34] MED LIST changes: +BENA25CA4 PO; +PRENTAB9 PO; +TUMS500C PO
[2022-04-29 17:51] VITALS: BP 129/69
[2022-04-29] MEDS ORDERED: BETAMETHASONE SOLUSPAN 6MG/ML 5ML VIAL IM ONE (18:10)
[2022-04-29 18:50] VITALS: BP 109/66
== END 2022-04-29 19:05 | disposition home or self-care (01) ==
LOC: M LDO 17:34
PROVIDERS: ATTEND Advanced Practice Midwife
DX: O36.5929 Maternal care for other known or suspected poor fetal growth, second trimester, other fetus (principal); O98.413 Viral hepatitis complicating pregnancy, third trimester; B19.20 Unspecified viral hepatitis C without hepatic coma; Z3A.35 35 weeks gestation of pregnancy

== ENCOUNTER 2022-05-04 16:47 | Inpatient (IN) | payer OTHER, MEDICAID ==
[~2022-05-04] VITALS: Ht 157.5 cm; Wt 73.6 kg
[2022-05-04] MEDS ORDERED: LACTATED RINGER'S 1000 ML IV STA (17:43)
[2022-05-04] MEDS ORDERED: OXYTOCIN DRIP 30 UNITS in IV 1 EA IV PRN (17:45)
[2022-05-04] MEDS ORDERED: LIDOCAINE 1% MDV 20ML VIAL INFIL PRN (17:45)
[2022-05-04] MEDS ORDERED: TRANEXAMIC ACID INJection 1,000 MG in NS 100 ML IV PRN (17:45)
[2022-05-04] MEDS ORDERED: CARBOPROST TROMETHAMINE 250 MCG/ML AMP IM PRN (17:45)
[2022-05-04] MEDS ORDERED: OXYTOCIN INJ 10UNITS/ML 1ML VIAL IM PRN (17:45)
[2022-05-04] MEDS ORDERED: METHYLERGONOVINE MALEATE 0.2 MG/ML VIAL (J2210) IM PRN (17:45)
[2022-05-04] MEDS ORDERED: UNIS25TA3 PO (17:48)
[2022-05-04] MEDS ORDERED: HOME MED LIST COMPLETE! XX SCH (17:50)
[2022-05-04 18:06] VITALS: BP 131/75
[2022-05-04 19:00] VITALS: BP 123/69
[2022-05-04 19:26] LABS: HEMATOCRIT 37.7 % (36.0-47.0); HEMOGLOBIN 12.5 g/dl (12.0-15.5); MEAN CORPUSCULAR HGB CONC 33.2 g/dl (32.0-36.5); MEAN CORPUSCULAR VOLUME 96.4 fl (80.0-96.0); PLATELET COUNT, AUTOMATED 308 10^3/uL (150-450); RED BLOOD COUNT 3.91 10^6/uL (4.00-5.40); WHITE BLOOD COUNT 8.2 10^3/uL (4.0-10.0)
[2022-05-04 19:40] VITALS: BP 127/84
[2022-05-04] MEDS ORDERED: miSOPROStol 50MCG 1/2 TABLET PO ONE (19:45)
[2022-05-04] MEDS ORDERED: PENICILLIN G POTASSIUM 5 MU IV 5 MU in D5W MINI-BAG PLUS 100 ML IV STA (19:46)
[2022-05-04] MEDS ORDERED: CALCIUM CARBONATE 500 MG CHEW U/D PO ONE (20:45)
[2022-05-05] VITALS (32 sets, daily range): BP systolic 111–140; BP diastolic 62–97
[2022-05-05] MEDS: LR 1,000 ML IV SCH ×4 (00:18→16:28)
[2022-05-05] MEDS: PEN G POT 3,000,000 UNIT/50 ML 3,000,000 UNIT in IV 1 EA IV SCH ×5 (02:18→18:22)
[2022-05-05] MEDS ORDERED: ONDANSETRON 4MG 2ML VIAL IV PRN ×2 (07:30→21:55)
[2022-05-05] MEDS ORDERED: NALOXONE INJ 0.4MG/1ML VIAL IV PRN (07:30)
[2022-05-05] MEDS ORDERED: diphenhydrAMINE 50MG/ML VIAL IV PRN (07:30)
[2022-05-05] MEDS ORDERED: ePHEDrine SULFATE 25 MG/5 ML(5MG/ML) SYRINGE IVP PRN (07:30)
[2022-05-05] MEDS ORDERED: EPIDURAL/PCA KEYS XX PRN (07:30)
[2022-05-05] MEDS ORDERED: FENTANYL 2MCG/ML ROPIVACAINE 0.2% IN 0.9% NACL 100ML IVBAG As Ordered ONE (07:37)
[2022-05-05] MEDS: FENTANYL/ROPIVACAINE/NACL BAG 100 ML EPIDURAL SCH ×2 (08:17→16:20)
[2022-05-05] MEDS: METHADONE 10MG TAB PO SCH (11:12)
[2022-05-05] MEDS ORDERED: ceFAZolin SOD 2 GM in IV 1 EA IV ONE (20:25)
[2022-05-05] MEDS ORDERED: TRANEXAMIC ACID INJection 1,000 MG in NS 100 ML IV PRN (20:25)
[2022-05-05] MEDS ORDERED: OXYTOCIN DRIP 30 UNITS in IV 1 EA IV PRN (20:25)
[2022-05-05] MEDS ORDERED: METHYLERGONOVINE MALEATE 0.2 MG/ML VIAL (J2210) IM PRN (20:25)
[2022-05-05] MEDS ORDERED: BICITRA 30ML SOLN UDC PO ONE (20:25)
[2022-05-05] MEDS ORDERED: AZITHROMYCIN INJ 500 MG, VIAL MATE ADAPTER 1 EACH in NS 250 ML IV ONE (20:25)
[2022-05-05] MEDS ORDERED: MIDAZOLAM INJ 2MG/2ML VIAL As Ordered ONE (21:18)
[2022-05-05] MEDS ORDERED: MORPHINE PRES-FREE INJ 10 MG/10 ML VIAL As Ordered ONE (21:22)
[2022-05-05] MEDS ORDERED: ePHEDrine SULFATE 25 MG/5 ML(5MG/ML) SYRINGE As Ordered ONE (21:23)
[2022-05-05] MEDS ORDERED: ONDANSETRON 4MG 2ML VIAL As Ordered ONE (21:23)
[2022-05-05] MEDS ORDERED: OXYTOCIN 30UNITS IN 0.9% NaCl 500ML IV BAG As Ordered ONE ×2 (21:23→22:21)
[2022-05-05] MEDS ORDERED: PHENYLephrine 500MCG 5ML (100MCG/ML) SYRINGE As Ordered ONE (21:23)
[2022-05-05 21:42] LABS: CORD GAS ABE V -1.8; CORD GAS HCO3 V 22.9 MEQ/L; CORD GAS O2 SAT V 98.6 %; CORD GAS PCO2 V 39.2 mmHg; CORD GAS PH V 7.385 UNITS; CORD GAS TCO2 V 24.1 MEQ/L
[2022-05-05] MEDS ORDERED: KETOROLAC 60MG 2ML VIAL As Ordered ONE (21:52)
[2022-05-05] MEDS ORDERED: OXYTOCIN DRIP 30 UNITS in IV 1 EA IV SCH ×3 (21:55)
[2022-05-05] MEDS ORDERED: SIMETHICONE 80MG CHEW TAB PO PRN (21:55)
[2022-05-05] MEDS ORDERED: LR 1,000 ML IV SCH (21:55)
[2022-05-05] MEDS ORDERED: KETOROLAC 30 MG/ML 1ML VIAL IV SCH (21:55)
[2022-05-05] MEDS ORDERED: MOM 30ML SUSPENSION UDC PO PRN (21:55)
[2022-05-05] MEDS ORDERED: RHOGAM 300MCG (1500IU) INJ IM SCH (21:55)
[2022-05-05] MEDS ORDERED: IBUPROFEN 800 MG TAB PO PRN (21:55)
[2022-05-06] VITALS (10 sets, daily range): BP systolic 100–120; BP diastolic 57–73
[2022-05-06] MEDS: ACETAMINOPHEN 500 MG TAB PO PRN ×2 (01:43→20:20)
[2022-05-06] MEDS: KETOROLAC 30 MG/ML 1ML VIAL IV SCH ×3 (03:59→15:08)
[2022-05-06 07:08] LABS: HEMATOCRIT 25.9 % (36.0-47.0); MEAN CORPUSCULAR HGB CONC 33.6 g/dl (32.0-36.5); MEAN CORPUSCULAR VOLUME 98.1 fl (80.0-96.0); PLATELET COUNT, AUTOMATED 212 10^3/uL (150-450); RED BLOOD COUNT 2.64 10^6/uL (4.00-5.40); WHITE BLOOD COUNT 7.6 10^3/uL (4.0-10.0)
[2022-05-06 07:23] LABS: HEMOGLOBIN 8.7 g/dl (12.0-15.5)
[2022-05-06] MEDS: LR 1,000 ML IV SCH (08:30)
[2022-05-06] MEDS: METHADONE 10MG TAB PO SCH (09:04)
[2022-05-06] MEDS: PRENATAL VITAMINS CHEWABLE TABLET PO SCH (09:05)
[2022-05-06] MEDS: DOCUSATE SODIUM 100MG CAPSULE PO SCH ×2 (09:06→20:20)
[2022-05-07] MEDS: IBUPROFEN 800 MG TAB PO SCH ×3 (00:53→16:00)
[2022-05-07] MEDS: oxyCODONE 5MG TAB PO PRN (00:54)
[2022-05-07 02:20] VITALS: BP 121/73
[2022-05-07 05:10] VITALS: BP 97/60
[2022-05-07] MEDS: ACETAMINOPHEN 500 MG TAB PO PRN (06:32)
[2022-05-07] MEDS: PRENATAL VITAMINS CHEWABLE TABLET PO SCH (08:33)
[2022-05-07] MEDS: DOCUSATE SODIUM 100MG CAPSULE PO SCH ×2 (08:34→20:21)
[2022-05-07] MEDS: METHADONE 10MG TAB PO SCH (08:35)
[2022-05-07] MEDS ORDERED: MEASLES,MUMPS,RUBELLA VACCINE INJ (MMR-II) SC.IMMUN ONE (09:00)
[2022-05-07 10:00] VITALS: BP 130/69
[2022-05-07 14:00] VITALS: BP 125/71
[2022-05-07 18:00] VITALS: BP 111/58
[2022-05-08] MEDS: IBUPROFEN 800 MG TAB PO SCH ×3 (00:05→15:46)
[2022-05-08] MEDS: oxyCODONE 5MG TAB PO PRN (00:07)
[2022-05-08 06:00] VITALS: BP 105/51
[2022-05-08] MEDS: ACETAMINOPHEN 500 MG TAB PO PRN (06:38)
[2022-05-08] MEDS: PRENATAL VITAMINS CHEWABLE TABLET PO SCH (09:13)
[2022-05-08] MEDS: DOCUSATE SODIUM 100MG CAPSULE PO SCH (09:13)
[2022-05-08] MEDS: METHADONE 10MG TAB PO SCH (09:14)
[2022-05-08] MEDS ORDERED: OXYC-517 PO (11:48)
[2022-05-08] MEDS ORDERED: IBUP80TA PO (11:48)
== END 2022-05-08 16:06 | disposition home or self-care (01) | DRG 540 ==
LOC: M LDI 16:47 → M OBS 05-05 23:40
PROVIDERS: ADMIT Advanced Practice Midwife; ATTEND Advanced Practice Midwife
PROC: 3E033VJ Introduction of Other Hormone into Peripheral Vein, Percutaneous Approach (ICD-10-PCS; 2022-05-05)
PROC: 10D00Z1 Extraction of Products of Conception, Low, Open Approach (ICD-10-PCS; principal; 2022-05-05 20:44)
DX: O41.03X0 Oligohydramnios, third trimester, not applicable or unspecified (principal); O99.324 Drug use complicating childbirth; O98.42 Viral hepatitis complicating childbirth; F50.81 Binge eating disorder; Z37.0 Single live birth; Z3A.36 36 weeks gestation of pregnancy; B18.2 Chronic viral hepatitis C; O99.344 Other mental disorders complicating childbirth; F11.90 Opioid use, unspecified, uncomplicated; O36.5990 Maternal care for other known or suspected poor fetal growth, unspecified trimester, not applicable or unspecified; Z91.018 Allergy to other foods; Z87.891 Personal history of nicotine dependence; Z79.899 Other long term (current) drug therapy; O62.0 Primary inadequate contractions

== ENCOUNTER → 2022-11-13 | Outpatient (CLI) | payer OTHER, MEDICAID ==
[~2022-11-13] MED LIST changes: +OXYC-517 PO; +UNIS25TA3 PO
[2022-11-13 17:04] LABS: BASO % 0.8 % (0.0-1.0); EOS # 0.1 10^3/uL (0.0-0.5); EOS % 2.8 % (0.0-3.0); HEMATOCRIT 38.9 % (36.0-47.0); HEMOGLOBIN 12.6 g/dl (12.0-15.5); LYMPH # 1.8 10^3/uL (1.5-5.0); LYMPH % 49.7 % (24.0-44.0); MEAN CORPUSCULAR HEMOGLOBIN 29.6 pg (27.0-33.0); MEAN CORPUSCULAR HGB CONC 32.4 g/dl (32.0-36.5); MEAN CORPUSCULAR VOLUME 91.3 fl (80.0-96.0); MONO # 0.4 10^3/uL (0.0-0.8); MONO % 11.9 % (2.0-8.0); NEUTROPHILS # 1.2 10^3/uL (1.5-8.5); NEUTROPHILS % 34.8 % (36.0-66.0); PLATELET COUNT, AUTOMATED 342 10^3/uL (150-450); RED BLOOD COUNT 4.26 10^6/uL (4.00-5.40); WHITE BLOOD COUNT 3.5 10^3/uL (4.0-10.0)
[2022-11-13 17:40] LABS: ALBUMIN 3.6 G/DL (3.2-5.2); ALKALINE PHOSPHATASE 67 U/L (46-116); ALT/SGPT 52 U/L (7.0-40); AST/SGOT 31 U/L (<34); BILIRUBIN,TOTAL 0.3 MG/DL (0.3-1.2); BLOOD UREA NITROGEN 10 MG/DL (9-23); CALCIUM LEVEL 8.5 MG/DL (8.5-10.1); CARBON DIOXIDE LEVEL 26 MMOL/L (20-31); CHLORIDE LEVEL 104 MMOL/L (98-107); CREATININE FOR GFR 0.66 MG/DL (0.55-1.30); GLOMERULAR FILTRATION RATE > 60.0 (>60); GLUCOSE, FASTING 75 MG/DL (60-100); SODIUM LEVEL 138 MMOL/L (136-145)
== END ==
LOC: M WUC 14:14
PROVIDERS: ATTEND Internal Medicine Infectious Disease
DX: B18.2 Chronic viral hepatitis C (principal)

== ENCOUNTER 2024-01-23 23:44 | Emergency (ER) | payer BC, MEDICAID, OTHER, SELFPAY ==
[~2024-01-23 23:44] MED LIST changes: -MIRT-62 PO; +MIRT-88 PO
[2024-01-24 00:05] VITALS: TEMP 97.2
[2024-01-24 03:29] VITALS: BP 128/71; O2SAT 99
== END 2024-01-24 03:31 | disposition home or self-care (01) ==
LOC: M ED 23:44
DX: N93.9 Abnormal uterine and vaginal bleeding, unspecified (principal); Z79.899 Other long term (current) drug therapy; Z79.1 Long term (current) use of non-steroidal anti-inflammatories (NSAID); Z91.018 Allergy to other foods; Z91.048 Other nonmedicinal substance allergy status

== ENCOUNTER 2024-02-04 09:53 | Emergency (ER) | payer OTHER, SELFPAY ==
[~2024-02-04] VITALS: Ht 157.5 cm; Wt 72.7 kg
[2024-02-04] MEDS ORDERED: IRON65TA2 PO (10:00)
[2024-02-04 12:07] LABS: BASO % 0.9 % (0.0-1.0); EOS # 0.1 10^3/uL (0.0-0.5); EOS % 1.4 % (0.0-3.0); HEMATOCRIT 32.9 % (36.0-47.0); HEMOGLOBIN 10.9 g/dl (12.0-15.5); LYMPH # 1.4 10^3/uL (1.5-5.0); LYMPH % 32.8 % (24.0-44.0); MEAN CORPUSCULAR HGB CONC 33.1 g/dl (32.0-36.5); MEAN CORPUSCULAR VOLUME 90.6 fl (80.0-96.0); MONO # 0.4 10^3/uL (0.0-0.8); MONO % 8.8 % (2.0-8.0); NEUTROPHILS # 2.4 10^3/uL (1.5-8.5); NEUTROPHILS % 55.9 % (36.0-66.0); PLATELET COUNT, AUTOMATED 391 10^3/uL (150-450); RED BLOOD COUNT 3.63 10^6/uL (4.00-5.40); WHITE BLOOD COUNT 4.3 10^3/uL (4.0-10.0)
[2024-02-04 12:36] LABS: CK-MB VALUE MASS < 1.0 NG/ML (<3.6); HCG, SERUM QUANTITATIVE 12.4 MIU/ML (<4.2)
[2024-02-04 12:38] LABS: BLOOD UREA NITROGEN 10 MG/DL (9-23); CALCIUM LEVEL 8.9 MG/DL (8.5-10.1); CARBON DIOXIDE LEVEL 28 MMOL/L (20-31); CHLORIDE LEVEL 105 MMOL/L (98-107); GLOMERULAR FILTRATION RATE > 60.0 (>60); GLUCOSE, FASTING 91 MG/DL (60-100); POTASSIUM SERUM 4.2 MMOL/L (3.5-5.1); SODIUM LEVEL 138 MMOL/L (136-145)
[2024-02-04 12:46] LABS: CPK CREATINE PHOSPHOKINASE 90 U/L (34-145); MB/CK RELATIVE INDEX 1.11 (< OR =4)
[2024-02-04 14:45] VITALS: BP 117/75; O2SAT 98
[2024-02-04 15:01] VITALS: TEMP 97.9
== END 2024-02-04 15:02 | disposition home or self-care (01) ==
LOC: M ED 09:53
DX: O07.4 Failed attempted termination of pregnancy without complication (principal); G43.909 Migraine, unspecified, not intractable, without status migrainosus; Z90.89 Acquired absence of other organs; Z91.018 Allergy to other foods; Z91.048 Other nonmedicinal substance allergy status; Z79.899 Other long term (current) drug therapy

== ENCOUNTER → 2024-02-15 | Outpatient (REF) | payer OTHER, MEDICAID ==
[~2024-02-15] MED LIST changes: +IRON65TA2 PO
== END ==
LOC: M PLALAB 09:50
PROVIDERS: ATTEND Obstetrics & Gynecology
DX: Z12.4 Encounter for screening for malignant neoplasm of cervix (principal)

== ENCOUNTER → 2024-02-15 | Outpatient (CLI) | payer OTHER | LOC: M PLALAB 10:27 | PROVIDERS: ATTEND Advanced Practice Midwife | DX: Z33.2 Encounter for elective termination of pregnancy (principal) ==

== ENCOUNTER 2024-02-18 12:18 | Emergency (ER) | payer BC, OTHER ==
[~2024-02-18] VITALS: Ht 157.5 cm; Wt 76.1 kg
[2024-02-18] MEDS: METOCLOPRAMIDE INJ 10MG/2ML VIAL IV ONE (16:54)
[2024-02-18 16:55] LABS: HEMATOCRIT 27.4 % (36.0-47.0); HEMOGLOBIN 8.9 g/dl (12.0-15.5); MEAN CORPUSCULAR HEMOGLOBIN 29.8 pg (27.0-33.0); MEAN CORPUSCULAR HGB CONC 32.5 g/dl (32.0-36.5); MEAN CORPUSCULAR VOLUME 91.6 fl (80.0-96.0); PLATELET COUNT, AUTOMATED 388 10^3/uL (150-450); RED BLOOD COUNT 2.99 10^6/uL (4.00-5.40); WHITE BLOOD COUNT 5.1 10^3/uL (4.0-10.0)
[2024-02-18] MEDS: diphenhydrAMINE 50MG/ML VIAL IV ONE (16:55)
[2024-02-18] MEDS: KETOROLAC 30 MG/ML 1ML VIAL IM ONE (16:56)
[2024-02-18] MEDS: KETOROLAC 30 MG/ML 1ML VIAL IV ONE (17:08)
[2024-02-18 17:21] LABS: BLOOD UREA NITROGEN 14 MG/DL (9-23); CALCIUM LEVEL 8.7 MG/DL (8.5-10.1); CARBON DIOXIDE LEVEL 28 MMOL/L (20-31); CHLORIDE LEVEL 106 MMOL/L (98-107); CREATININE FOR GFR 0.83 MG/DL (0.55-1.30); GLOMERULAR FILTRATION RATE > 60.0 (>60); GLUCOSE, FASTING 88 MG/DL (60-100); SODIUM LEVEL 138 MMOL/L (136-145)
[2024-02-18] MEDS: NS 1,000 ML IV ONE (17:32)
[2024-02-18 17:34] LABS: CPK CREATINE PHOSPHOKINASE 92 U/L (34-145)
[2024-02-18] MEDS ORDERED: ISOVUE-370 76% 100ML VIAL As Ordered ONE (17:56)
[2024-02-18 18:24] LABS: HCG, SERUM QUANTITATIVE 3.4 MIU/ML (<4.2)
[2024-02-18] MEDS ORDERED: ZITHTAB PO (19:49)
[2024-02-18 19:59] VITALS: BP 122/73; TEMP 97.9; O2SAT 96
== END 2024-02-18 20:04 | disposition home or self-care (01) ==
LOC: M ED 12:18
DX: R51.9 Headache, unspecified (principal); R06.02 Shortness of breath; D64.9 Anemia, unspecified; J98.11 Atelectasis; F19.11 Other psychoactive substance abuse, in remission; Z90.89 Acquired absence of other organs; Z91.048 Other nonmedicinal substance allergy status; Z91.018 Allergy to other foods; Z79.899 Other long term (current) drug therapy
CPT/HCPCS: 70450; 71045; 71275; 76856; 80048; 81001; 82550; 84702; 85027; 87486; 87581; 87633; 87798; 93005; 96361; 96372; 96374; 96375; 99285; J1200; J1885; J2765; Q9967

== ENCOUNTER → 2024-11-27 | Outpatient (REF) | payer MEDICAID, OTHER ==
[~2024-11-27] MED LIST changes: -FLOM0.4C39 PO; +TAMS-18 PO; +ZITHTAB PO
[2024-11-28 13:58] LABS: CANDIDA GLABRATA NAA NOT DETECTED (NOT DETECTED); TRICH VAG BY NAA NOT DETECTED (NOT DETECTED)
[2024-11-28 15:07] LABS: BVAB 2 POSITIVE (NEGATIVE)
[2024-11-28 15:12] LABS: CHLAMYDIA TRACHOMATIS NAA NOT DETECTED (NOT DETECTED)
== END ==
LOC: M SFHCWAGY 12:33
PROVIDERS: ATTEND Obstetrics & Gynecology
DX: Z11.3 Encounter for screening for infections with a predominantly sexual mode of transmission (principal)

== ENCOUNTER → 2025-01-04 | Outpatient (CLI) | payer OTHER ==
[2025-01-04 14:43] LABS: PLATELET COUNT, AUTOMATED 355 10^3/uL (150-450)
[2025-01-04 15:15] LABS: ALT/SGPT 12 U/L (7.0-40); AST/SGOT 22 U/L (<34); CALCIUM LEVEL 8.8 MG/DL (8.5-10.1); CARBON DIOXIDE LEVEL 28 MMOL/L (20-31); CHLORIDE LEVEL 103 MMOL/L (98-107); CREATININE FOR GFR 0.75 MG/DL (0.55-1.30); GLOMERULAR FILTRATION RATE > 90.0 (>60); POTASSIUM SERUM 3.7 MMOL/L (3.5-5.1); SODIUM LEVEL 138 MMOL/L (136-145)
[2025-01-04 15:26] LABS: HCG, SERUM QUALITATIVE NEGATIVE (NEGATIVE)
[2025-01-04 15:38] LABS: HIV 1&2 SCREEN NEGATIVE (NEGATIVE)
[2025-01-04 16:14] LABS: HEPATITIS C VIRUS ABY INDEX > 11.00 INDEX (<0.8)
[2025-01-04 16:32] LABS: GC DNA AMPLIFICATION NEGATIVE (NEGATIVE)
== END ==
LOC: M WUC 09:02
PROVIDERS: ATTEND Family Medicine
DX: F11.20 Opioid dependence, uncomplicated (principal)